=== PATIENT | male | born 1955 | race Caucasian/White ===

== ENCOUNTER 2022-12-03 13:21 | Emergency (ER) | payer MEDICARE, BC, SELFPAY ==
[2022-12-03] VITALS (13 sets, daily range): BP systolic 129–155; BP diastolic 59–91; PULSE 65–75; RESP 16–20; TEMP 36.8; O2SAT 96–99
--- NOTE | 2022-12-03 13:30 | DI.CT_ITS ---
Exam(s) CT ABDOMEN PELVIS W EXAM: CT ABDOMEN PELVIS W CLINICAL HISTORY: left lower abdominal pain TECHNIQUE: Imaging Protocol: Axial computed tomography images with coronal and sagittal reformatted images were created and reviewed CONTRAST MATERIAL: Intravenous: Omnipaque 350 Contrast volume:100 mL Oral: No COMPARISON: No exams were available for comparison FINDINGS: ABDOMEN: Lung Bases: Normal where visualized. Liver: Fatty infiltration. No measurable mass. Portal, Superior Mesenteric, and Splenic Veins: Unremarkable. Gallbladder and Biliary Tract: No radiodense calculus or dilation. Pancreas: Normal density, no abnormal calcifications or inflammatory process. Spleen: Normal. Adrenals: No masses seen. Kidneys: Normal size, contour and axis. No radiodense stones or obstructive uropathy. There are bilat eral simple renal cysts. The largest on the right measures 3.6 cm. The largest on the left measures 2.2 cm. No follow-up is recommended. Abdominal Aorta: Abdominal portion non-dilated. Atherosclerosis is present. Bowel: No obstruction or bowel wall thickening. Appendix is unremarkable. Peritoneal Cavity: No ascites, collection or mesenteric inflammatory response. No free air. Lymph Nodes: Within normal limits. Bones: Within normal limits for the patient's age. Soft Tissues: Bilateral fat containing inguinal hernias, right greater than left. PELVIS: Bladder: Symmetric distention, no gross wall thickening. Reproductive Organs: The prostate gland is enlarged and impinges upon the base of the urinary bladder . Lymph Nodes: Within normal limits. Bones: Within normal limits for the patient's age. IMPRESSION: 1. No acute abdominal or pelvic process. 2. Enlarged prostate gland which appendages upon the base of the urinary bladder. There are some nod ularity particularly at the superior aspect of the prostate gland. Urology consult is recommended. 3. Findings were discussed with Dr. Frances at 3:38 p.m. on 12/03/2022. RADIATION DOSE DELIVERED: 1,320.52mGy.cm Total DLP DATA REPOSITORY: All CT scans at this facility are submitted to the National Radiology Data Registry (NRDR) Dose Index Registry (DIR) with the [employer] ([employer]). RADIATION OPTIMIZATION: All CT scans at this facility use at least one of these dose optimization te chniques: automated exposure control; mA and/or kV adjustment per patient size (includes targeted exa ms where dose is matched to clinical indication); or iterative reconstruction.
--- NOTE | 2022-12-03 13:45 | ED.GENADUL_ITS ---
Discharge Plan Disposition Patient Disposition: Home Condition: Stable Discharge Details Clinical Impression: Abdominal pain Primary Care Provider: Katherine Spencer ED Provider: Michael Frances Home Meds and New Rx's Prescriptions: Continued aspirin 81 mg Tablet,Chewable 81 mg PO DAILY carbidopa-levodopa 25-100 mg Tablet 1 tab PO TID coenzyme Q10 [Co Q-10] 200 mg Capsule 200 mg PO DAILY rosuvastatin 40 mg Capsule, Sprinkle 40 mg PO DAILY glipizide 10 MG tablet 1 tab PO BID Patient Comments: patient not currently taking omeprazole 40 MG capsule,delayed release(DR/EC) 40 mg PO DAILY@0730 Patient Comments: patient not currently taking glipizide 5 MG tablet 0.5 tab PO BID Discharge Instructions Instructions: Abdominal Pain (ED) Additional Instructions: your cat scan did not show concerning findings your lipase which measures pancreas inflammation was mildly elevated. Follow up with your primary care provider especially if symptoms continue and have this rechecked if you feel more ill, have severe worsening pain or persistent vomiting return t o the emergency department Medical Decision Making 67 yo female with hx of parkinson's, DM, who comes in with cc of left lower abdominal pain worsening over 3 days. Denies fevers, chills, chest pain, vomiting, diarrhea. He arrives stable speaking clearly in no distress. He has a soft abdomen with tenderness in the llq. Denies testicle pain or swelling or urinary symptoms. Suspect diverticulitis, will proceed with cbc, cmp, ua and lipase and ct abd/pelvis. labs show mild increase in lipase otherwise no concerning findings and CT shows no acute findings, prostate is enlarged but unlikely the cause of his symptoms, ua negative. Pt feels better, no longer having tenderness in the abdomen. Given improved pain do not feel he requires admission, advised to have lipase rechecked with pcp in 1-2 weeks, return precautions given Differential Diagnosis Differential Diagnosis: diverticulitis, appendicitis, sbo Imaging Data Radiologic Study: Attestation: I personally reviewed and interpreted this imaging study as follows: Imaging: CT Scan Radiologist's impression: IMPRESSION: 1. No acute abdominal or pelvic process.? 2. Enlarged prostate gland which appendages upon the base of the urinary bladder.? There are some nodularity particularly at the superior aspect of the prostate gland.? Urology consult is recommended. 3. Findings were discussed with Dr. Frances at 3:38 p.m. on 12/03/2022. Lab Data Lab results reviewed: Yes I reviewed the patient's lab results. HPI General Mode of arrival: ambulatory . Date/Time Provider Initiated Documentation: 12/03/22 13:22 . Limitations to Documentation: no limitations . Information obtained by: patient . History of Present Illness 67 year old M presents to the emergency department with the chief complaint of left lower abdominal pain, described as moderate, Patient started experiencing this day(s) (3) and it has been constant. No relieving factors improve symptom(s), No exacerbating factors reported . Patient notes no other symptoms.; denies chest pain, fever/chills and shortness of breath. Patient did receive the following treatments prior to arrival, none Related Data Home Medications Medication Instructions Recorded Confirmed glipizide 10 mg tablet 1 tab PO BID 10/11/17 10/11/17 glipizide 5 mg tablet 0.5 tab PO BID 10/11/17 12/03/22 omeprazole 40 mg capsule,delayed 40 mg PO DAILY@0730 10/11/17 10/11/17 release aspirin 81 mg chewable tablet 81 mg PO DAILY 12/03/22 12/03/22 carbidopa 25 mg-levodopa 100 mg 1 tab PO TID 12/03/22 12/03/22 tablet coenzyme Q10 200 mg capsule (Co 200 mg PO DAILY 12/03/22 12/03/22 Q-10) rosuvastatin 40 mg sprinkle capsule 40 mg PO DAILY 12/03/22 12/03/22 Allergies Allergy/AdvReac Type Severity Reaction Status Date / Time metformin Allergy Intermediate Other (See Unverified 12/03/22 13:41 Comment) General Stated Complaint: Abd Prob CARLIE: 3 Review of Systems All systems reviewed & are unremarkable except as noted in HPI and below Constitutional Constitutional: Denies chills, Denies fever(s) and Denies weakness Cardiovascular Cardiovascular: Denies chest pain and Denies dyspnea Respiratory Respiratory: Denies cough and Denies dyspnea Gastrointestinal Gastrointestinal: Reports abdominal pain, Denies nausea and Denies vomiting Genitourinary Genitourinary: Denies dysuria Musculoskeletal Musculoskeletal: Denies joint swelling Integumentary/Breasts Skin/Breast: Denies rash Neurologic Neurologic: Denies weakness Psychiatric Psychiatric: Denies depression Endocrine Endocrine: Denies cold intolerance and Denies heat intolerance Allergic/Immunologic Allergic/Immunologic: Denies urticaria PFSH All Active Problems (Updated 12/03/22 @ 15:53 by Michael Frances MD) Abdominal pain (Acute) Social History Smoking/Tobacco Use Status: Never Smoking risk assessment performed?: Yes Do you feel safe in your relationship?: Yes Exam Const General: no acute distress Orientation: alert HENMT Head: normal to inspection Ears: external ears normal General nose exam: external nose normal Mouth: moist mucous membranes Eyes General: appearance normal, both eyes and all related structures Neck Neck: normal visual inspection Resp Effort & Inspection: normal respiratory effort and able to speak in complete sentences Cardio Rate: regular rate GI Palpation: soft and tender Skin General skin exam: no rashes or lesions noted Neuro General: patient alert and patient oriented x3 Extrem General: normal to inspection Psych Mental Status: mental status grossly normal Course Vital Signs Vital signs: Vital Signs Temperature 36.8 C 12/03/22 13:25 Pulse 75 12/03/22 13:25 Respiratory Rate 20 12/03/22 13:25 Blood Pressure 129/75 12/03/22 13:25 Pulse Oximetry 99 12/03/22 13:25 Temperature 36.8 C 12/03/22 13:25 Temperature Source Oral 12/03/22 13:25 Pulse 75 12/03/22 13:25 Respiratory Rate 20 12/03/22 13:25 Respiratory Effort Normal 12/03/22 13:32 Blood Pressure 129/75 12/03/22 13:25 Blood Pressure Position Sitting 12/03/22 13:25 Pulse Oximetry 99 12/03/22 13:25 Oxygen Delivery Method Room Air 12/03/22 13:25 Oxygen Flow Rate 0 12/03/22 13:25 Pain Level 10 12/03/22 13:25
[2022-12-03] MEDS: Ketorolac 15 MG/ML VIAL IVP (14:04)
[2022-12-03] MEDS: Normal Saline 1,000 ML 1000 ML IV (14:05)
[2022-12-03 14:11] LABS: Abs Immature Grans 0.01 10^3/uL (0.0-0.06); Absolute Basophil Count 0.02 10^3/uL (0.0-0.2); Absolute Eosinophil Count 0.22 10^3/uL (0.0-0.7); Absolute Lymphocyte Count 1.59 10^3/uL (1.2-3.4); Absolute Monocyte Count 0.48 10^3/uL (0.1-0.8); Absolute Neutrophil Count 3.22 10^3/uL (1.2-6.7); Basophils % 0.4; HCT 42.7 % (40.0-50.0); HGB 14.6 g/dL (13.5-17.5); Immature Grans % 0.2; Lymphocytes % 28.7; MCH 31.5 pg (27.0-33.0); MCHC 34.2 % (32.0-36.0); MCV 92 fL (80-95); MPV 9.2 fL (8.0-11.0); Monocytes % 8.7; Platelet Count 109 10^3/uL (130-400); RBC 4.64 10^6/uL (4.36-5.78); RDW 12.1 % (11.8-14.1); RDW-SD 40.7 fL; WBC 5.54 10^3/uL (4.4-10.8)
[2022-12-03 14:29] LABS: ALT 18 U/L (16-63); AST 20 U/L (15-37); Albumin 4.1 g/dL (3.4-5.0); Alkaline Phosphatase 65 U/L (46-116); BUN 22 mg/dL (7-18); Bilirubin, Total 0.7 mg/dL (0.2-1.0); Chloride 103 mmol/L (98-107); Estimated GFR 81.47 (mL/min/1.73m2); Glucose 90 mg/dL (74-106); Lipase 217 U/L (16-77); Magnesium 2.2 mg/dL (1.8-2.4); Potassium 3.9 mmol/L (3.5-5.1); Sodium 140 mmol/L (136-145); Total Protein 7.7 g/dL (6.4-8.2)
[2022-12-03] MEDS: Omnipaque 350 MG/ML 100 ML BTL IJ (14:59)
[2022-12-03] MEDS: Normal Saline - Diluent 50 ML VIAL IJ (15:00)
[2022-12-03 15:17] LABS: Bilirubin Negative (Negative); Blood Negative (Negative); Clarity Clear (Clear); Glucose Negative (Negative); Ketones Negative (Negative); Leukocyte Esterase Negative (Negative); Nitrite Negative (Negative); Urobilinogen 0.2 mg/dL (Up to 0.2)
== END 2022-12-03 16:11 | disposition home or self-care (01) ==
PROVIDERS: Emergency Provider Emergency Medicine; PCP Internal Medicine
DX: R10.32 Left lower quadrant pain (principal); G20 Parkinson's disease; E11.9 Type 2 diabetes mellitus without complications; Z79.84 Long term (current) use of oral hypoglycemic drugs; N40.0 Benign prostatic hyperplasia without lower urinary tract symptoms
CPT/HCPCS: 80053; 83690; 96374; 99285; 74177; 81003; 83735; 85025; 99284; J1885; J3490